=== PATIENT | male | born 1995 | race Caucasian/White ===

== ENCOUNTER 2025-07-31 19:36 | Emergency (ER) | payer MEDICAID ==
[~2025-07-31] VITALS: Ht 180.3 cm; Wt 93.7 kg
--- NOTE | 2025-07-31 20:18 | Physician Documentation ---
History of Present Illness ~ Chief Complaint: Shoulder pain Stated Complaint: SHOULDER PAIN Time Seen by MD: 20:14 HPI This is a 30-year-old gentleman who presents for evaluation of right shoulder and elbow pain that has been present for couple of days after he accidentally tripped and fell off the bed of his truck. He did not strike his head. He did not lose consciousness. He does not take blood thinners. He does report an immediate sharp nonradiating pain in his shoulder and his elbow. Unfortunately he had also got worse throughout the the subsequent days. He did not seek medical attention immediately. He did not attempt to treat his symptoms. He states that the pain is markedly worse with any range of motion whatsoever. The swelling in the elbow got worse over the course of days. Denies any other symptoms such as chest pain or difficulty breathing. He denies any concerns for tobacco, alcohol or illicit substances use. Medication Reconciliation Allergies: Coded Allergies: shellfish derived (Verified Allergy, Unknown, 07/31/25) Review of Systems ROS 10 point review of systems was performed and unless noted above in HPI is negative for acute process/complaint. Physical Exam Vital Signs: Temperature: 97.0, Heart Rate: 98, Respiratory Rate: 22, BP: 118/77, Pulse Oximetry: 97, Weight: 93.700 Oxygen Flow Rate: 0 Physical Exam Physical examination: GENERAL: Awake, alert, oriented, GCS 15, no apparent distress, non-toxic appearing, answers questions, follows commands appropriately. Examined in RAP room HEENT: Atraumatic, normocephalic, pupils equal, extraocular muscles intact Active gross movements, sclerae anicteric, mucus membranes moist, no stridor. NECK: Midline, no JVD CARDIOVASCULAR: Good skin perfusion without evidence of pallor, mottling. PULMONARY: Nonlabored, symmetric chest rise, no audible wheezing, no accessory muscle use, no respiratory distress, speaking in full sentences. GASTROINTESTINAL: Not distended. NEUROLOGIC: Lucid with normal mental status. Normal facial symmetry. Moves all extremities symmetrically and with purpose. No truncal ataxia. Speech is fluid without evidence of dysarthria or aphasia, no focal deficits appreciated. EXTREMITIES: Acute deformities Skin: warm, dry PSYCHIATRIC: Normal affect, normal insight, normal concentration. Focused exam: There is tenderness to palpation over the right shoulder, exquisitely tender to palpation over the olecranon of the right elbow. Neurovascularly intact distally. Pulses 2+. Cap refill less than 2 seconds. Full range of motion of the wrists and fingers. Range of motion of the shoulder and elbow not tested due to pain. Progress Results/Orders Results/Orders Completed Orders - SUZETTE MERINO DO Ketorolac Trometh 30mg/Ml Vial (Toradol (07/31/25 20:15) Medications Received in ER Medications (Trade) Dose Ordered Sig/Ang Route PRN Reason Start Time Stop Time Status Last Admin Dose Admin (Toradol inj. 30mg/ml) 30 mg ONCE ONCE IM 07/31/25 20:15 07/31/25 20:16 DC 07/31/25 20:30 30 MG Vital Signs 07/31/25 07/31/25 19:48 20:30 Temp 97.0 Pulse 98 Resp 22 16 B/P (MAP) 118/77 Pulse Ox 97 O2 Flow Rate 0 Medical Decision Making Findings Facility Status: ED Holds, RME process The plan was discussed with the patient, who demonstrates clear understanding of the plan and is in agreement with the plan unless otherwise noted in the chart. All questions have been answered, all concerns were addressed unless otherwise documented. I was available throughout their ED stay for frequent reassessment and questions. Differential Diagnoses (considered and possible or likely): [Fall from truck, acute traumatic pain, right shoulder/elbow contusion versus dislocation versus fracture] ??Differential Diagnoses (considered and unlikely, not requiring evaluation currently): [Denies head strike. Subdural, subarachnoid are unlikely. No evidence of neurovascular injury.] MDM Data Please see [facility] for the following: Independent Historians and external Records Review. Historian: [Patient] Independent Historians: ?[None] Medication Management: [Reviewed medication list] Social History and determinants: [Reviewed] Please see the body of the note for the following: Any independent interpretations of ECG, imaging studies. All vitals signs/haemodynamics, ordered tests were independently reviewed and interpreted by myself. Nursing triage complaint and vitals reviewed, additional nursing notes were reviewed as available and I agree unless otherwise noted or documented in contradiction in the chart Vital Signs: Independently reviewed Labs: Independently interpreted Imaging: Independently interpreted Old Medical Records: Independently reviewed, see [facility] for relevant summary and information Additionally notably showing: [Hemodynamically stable. X-ray shows no fracture.] Tests considered but not ordered include: [Hematologic workup has been considered but does not appear to be necessary given mechanical nature of the injury.] Social Determinants of Health Impact: Patient was evaluated in [facility] [place] to healthcare due to below par ratio of patient to medical providers. [] Comorbid Conditions Impacting Present Evaluation and Care/Treatment: [None] Management Discussions with other Healthcare Providers: [None] Treatment and Disposition Medication Management (Given or considered): [Pain management]. See EMR for details Consideration for Hospitalization/Escalation/Deescalation of Care: Admission for observation has been considered, [however the patient is able to tolerate p.o., their symptoms are controlled, they are able to rely on oral medications, and their chief complaint/diagnosis can be managed on outpatient basis.] ?ED Course:?[No clinical deterioration] ?Shared decision making:?[Patient is hemodynamically stable for discharge home with follow with their primary care provider. [ ] Specific and cautious return precautions provided and discussed with full understanding. Any incidental findings were also discussed and follow up recommendations given. [] All questions answered. Patient/family were able to verbalize back return precautions. Patient/family agree to plan. Copies of imaging and laboratory studies were provided.] Code status:?FULL Please see the full Electronic Medical Record for full details of nursing documentation, medications list, other records of complete past medical history and conditions, vital signs, laboratory studies, and any radiologic study interpretations by radiologists. Portions of this note were completed using [employer] dictation software and as a result there may exist minor errors in spelling. I have reviewed elements of past family and social history and agree as included in note. Departure Disposition: HOME / SELF CARE / HOMELESS Impression: Primary Impression: Fall Additional Impressions: Acute traumatic pain Contusion of right shoulder Contusion of right elbow Condition: Improved Discharge Instructions: Elbow Contusion, Shoulder Pain Referrals: NO PRIMARY CARE PROVIDER (PCP) Prescriptions Cyclobenzaprine HCl (Cyclobenzaprine HCl) 5 Mg Tablet 1 TAB PO TID PRN PRN for muscle spasms for 10 Days, #30 TAB 0 Refills Prov: SUZETTE MERINO DO 07/31/25 Naproxen (Naproxen) 375 Mg Tablet 1 TAB PO Q12H for pain for 30 Days, #60 TAB 0 Refills with food Prov: SUZETTE MERINO DO 07/31/25 Education Educated: Patient Educated regarding: diagnosis, treatment, prognosis, need for follow up Signature Scribe Signature: No scribe Attestation: This note accurately reflects clinical decisions, work performed by myself, DO WILBER Matthew NICHOLAS M DO Jul 31, 2025 20:18
[2025-07-31] MEDS: ketorolac trometh 30MG/ML vial 30 MG/ML VIAL IM ONE (20:30)
--- NOTE | 2025-07-31 20:49 | RADIOLOGY REPORT ---
CLINICAL INDICATION: mechanical fall TECHNIQUE: 3 views DI SHOULDER, COMPLETE (MIN 2 VWS) Comparison: None FINDINGS: No acute fracture or dislocation. Normal osseous mineralization. No significant degenerative change. Unremarkable soft tissues and imaged chest. IMPRESSION: 1. No acute finding of the right shoulder.
--- NOTE | 2025-07-31 20:52 | RADIOLOGY REPORT ---
CLINICAL INDICATION: mechanical fall TECHNIQUE: 4 views DI ELBOW, COMPLETE (3VW MIN) Comparison: None FINDINGS: No acute fracture or joint malalignment. No appreciable joint effusion. Mild ulnotrochlear osteoarthrosis. Posterior soft tissue swelling. IMPRESSION: 1. Soft tissue swelling without acute osseous finding of the right elbow.
[2025-07-31] MEDS ORDERED: NAPR-1166 PO (20:59)
[2025-07-31] MEDS ORDERED: CYCL-920 PO (20:59)
[2025-07-31 21:07] VITALS: BP 132/80; PULSE 68; RESP 18; TEMP 97; O2SAT 99
== END 2025-07-31 21:05 | disposition home or self-care (01) ==
LOC: ER 19:36
DX: S40.011A Contusion of right shoulder, initial encounter (principal); S50.01XA Contusion of right elbow, initial encounter; G89.11 Acute pain due to trauma; Z91.013 Allergy to seafood; W06.XXXA Fall from bed, initial encounter; Y93.89 Activity, other specified; Y92.89 Other specified places as the place of occurrence of the external cause; Y99.8 Other external cause status
CPT/HCPCS: 73030; 73080; 96372; 99284; J1885

== ENCOUNTER 2025-10-23 09:18 | Emergency (ER) | payer MEDICAID, OTHER ==
[~2025-10-23] VITALS: Ht 182.9 cm; Wt 111.0 kg
[~2025-10-23 09:18] MED LIST: CYCL-920 PO; NAPR-1166 PO
[2025-10-23 09:29] VITALS: TEMP 98.8
[2025-10-23] MEDS ORDERED: COLC0.6C3 PO (09:41)
--- NOTE | 2025-10-23 09:41 | Physician Documentation ---
History of Present Illness ~ General Chief Complaint: Pain Stated Complaint: GOUT FLARE UP Time Seen by MD: 09:32 OK to notify your PCP?: Yes Source: patient Mode of Arrival: POV Exam Limitations: no limitations History of Present Illness Initial Comments Reports having a gout flare-up over the past few days which is in bilateral ankles, left big toe and right knee. He does have some soreness to his left wrist but that is intermittent. He reports that he has had multiple gout flare- ups in the past year in his typically treated with colchicine. He reports that he used to take allopurinol but he is new to the area in his not establish care with a primary care provider therefore does not have a prescription for this yet. He plans to establish care soon. Medication Reconciliation Allergies: Coded Allergies: shellfish derived (Verified Allergy, Unknown, 07/31/25) Scheduled Colchicine (Colchicine), 1 CAP PO DAILY Naproxen (Naproxen), 1 TAB PO Q12H Scheduled PRN Cyclobenzaprine HCl (Cyclobenzaprine HCl), 1 TAB PO TID PRN PRN for muscle spasms Past Medical History Other Past Medical History: Gout Review of Systems All Other Systems at this time: Reviewed and Negative Physical Exam Physical Exam Vital Signs: RN Vital Signs have been reviewed: Yes, Temperature: 98.8, Source: Oral, Heart Rate: 100, Respiratory Rate: 14, BP: 140/80, Pulse Oximetry: 98, Weight: 111.000 Pulse Oximetry Reflects: adequate oxygenation Physical Exam General: Alert, no distress. HEENT: No injection, moist mucous membranes. Neck: Full range of motion. Respiratory: No respiratory distress, equal chest rise and fall. Chest: No accessory muscle use. Cardiovascular: Regular rate and rhythm. Gastrointestinal: Nondistended. Extremities: Edema in right knee with tenderness to palpation and pain upon flexion. Tenderness to palpation of bilateral ankles, no edema noted. Tenderness to palpation of left MTP with some swelling and redness noted. Neurologic: Oriented x4. Psychiatric: Normal mood and affect. Skin: Normal color, warm and dry. Progress Results/Orders Reviewed/noted all lab results: Yes Results/Orders Vital Signs 10/23/25 10/23/25 09:29 10:18 Temp 98.8 Pulse 100 108 Resp 14 13 B/P (MAP) 140/80 149/86 Pulse Ox 98 98 Medical Decision Making Additional information obtaine: old records Findings History and physical exam reveal acute gout flare-up in multiple locations. No signs of joint sepsis. We discussed the importance of being placed back on a uric acid lowering medication but I am unable to do that as I can not follow up with him. I will give him the rescue medication which is colchicine. Initial dose was given in the department in the rest was sent to the pharmacy with the instructions to peanut picker within the next hour and take the 2nd dose for today. We discussed foods to avoid that could be a trigger. Differential Diagnosis Septic joint, gouty arthritis, fracture, neurovascular injury. Departure Disposition: HOME / SELF CARE / HOMELESS Impression: Primary Impression: Gout attack Condition: Stable Discharge Instructions: Gout, [id number] Additional Instructions: You are given the initial dose of the gout medication while in the department. Please take 1 tablet 1 hour after initial dose and then you can take 1 tablet once a day for 7 days or until symptoms resolve. Return back here for any new or worsening symptoms. Establish care with a primary care provider next week. Avoid trigger foods. Referrals: NO PRIMARY CARE PROVIDER (PCP) Prescriptions Colchicine (Colchicine) 0.6 Mg Capsule 1 CAP PO DAILY for 7 Days, #7 CAP 0 Refills Prov: LEELA JACOBSEN 10/23/25 Education Educated: Patient Educated regarding: diagnosis, treatment, prognosis, need for follow up Additional Comment Medical Screen Exam This patient recieved a medical screening examination. After reviewing the individual's medical complaints with presenting symptoms and performing an appropriate physical examination, it was determined that no immediate life- threatening emergency medical condition is present. This individual is also not a women having contractions. I have reviewed this case [id number] with the PA, including physical examination, laboratory and imaging results as appropriate. The patient was evaluated [id number] and I agree with the PA's notes. I agree with the findings, evaluation and disposition. Signature Scribe Signature: . Attestation: Scribed for Leela Jacobsen [facility] by Leela Arthur NP . 10/23/25 09:46 Parts of this note were created using [employer] voice recognition software program. While efforts were made to correct any mistakes made by this voice recognition software program, nonsensical phrases may remain in this note. In a ddition, there may be errors and syntax, grammar, content and spelling. LEELA JACOBSEN Oct 23, 2025 09:41 DE RANDY MONCADA MD Oct 23, 2025 18:26
[2025-10-23 10:18] VITALS: BP 149/86; PULSE 108; RESP 13; O2SAT 98
== END 2025-10-23 10:20 | disposition home or self-care (01) ==
LOC: ER 09:19
DX: M10.9 Gout, unspecified (principal); Z91.013 Allergy to seafood
CPT/HCPCS: 99283